=== PATIENT | female | born 1980 | race African-American/Black ===

== ENCOUNTER 2021-12-28 06:25 | Emergency (ER) | payer MEDICAID ==
[~2021-12-28] VITALS: Ht 170.2 cm; Wt 130.8 kg
[2021-12-28 06:31] VITALS: BP 131/91
[2021-12-28 09:26] LABS: BASOPHILS % 1.1 % (0.0-2.0); HEMATOCRIT. 36.9 % (36.0-48.0); HEMOGLOBIN. 11.8 g/dL (12.0-16.0); MEAN CORPUSCULAR HEMOGLOBIN 26.4 pg (28.0-32.0); MEAN CORPUSCULAR VOLUME 82.2 fL (81.0-99.0); MEAN PLATELET VOLUME 8.3 fl (7.4-10.4); MONOCYTES % 6.3 % (2.0-8.0); NEUTROPHILS % 60.6 % (40.0-76.0); PLATELET 398 x1000/uL (130-400); RED BLOOD CELL COUNT 4.48 mill/uL (4.2-5.4); RED CELL DISTRIBUTION WIDTH 15.5 % (11.6-14.6)
[2021-12-28 09:40] LABS: CLARITY URINE CLEAR (CLEAR); COLOR URINE YELLOW (YELLOW); KETONES URINE NEGATIVE (NEGATIVE); LEUKOCYTE ESTERASE URINE NEGATIVE (NEGATIVE); NITRITE URINE NEGATIVE (NEGATIVE); OCCULT BLOOD URINE NEGATIVE (NEGATIVE); PROTEIN URINE NEGATIVE (NEGATIVE); SPECIFIC GRAVITY URINE 1.013 (1.005-1.030)
[2021-12-28 09:49] LABS: CHLORIDE 106 mEq/L (98-107)
[2021-12-28] MEDS ORDERED: IBUP-2029 MT (10:44)
[2021-12-28] MEDS ORDERED: DOXY100C5 MT (10:44)
[2021-12-28] MEDS ORDERED: CEPH500C2 MT (10:44)
[2021-12-28] MEDS ORDERED: HYDR-4001 MT (10:44)
== END 2021-12-28 11:16 | disposition home or self-care (01) ==
LOC: ER 06:25
DX: L03.116 Cellulitis of left lower limb (principal); F12.10 Cannabis abuse, uncomplicated; Z98.890 Other specified postprocedural states
CPT/HCPCS: 36415; 80053; 81003; 81025; 85025; 93971; 99284